=== PATIENT | male | born 1980 | race Caucasian/White ===

== ENCOUNTER 2018-07-03 06:02 | Day surgery (SDC) | payer OTHER ==
[2018-07-03] VITALS (17 sets, daily range): BP systolic 109–129; BP diastolic 58–88; PULSE 70–82; RESP 10–18; Ht 175.3 cm; Wt 109.4 kg
[~2018-07-03] VITALS: Ht 175.3 cm; Wt 109.4 kg
[~2018-07-03 06:02] MED LIST: CEFAZOLIN 2 GM/50 ML (PMX) 50 ML IVPB ONE; SOD CHLORIDE 0.9% 1,000 ML IV ONE
[2018-07-03] MEDS ORDERED: DEXAMETHASONE 4 MG/ML 5 ML INJ ONE (07:00)
[2018-07-03] MEDS ORDERED: DESFLURANE 15 MIN ONE (07:00)
[2018-07-03] MEDS ORDERED: FAMO20TA18 PO (07:07)
[2018-07-03] MEDS ORDERED: ASPI81TA52 PO (07:07)
[2018-07-03] MEDS ORDERED: CILO100T PO (07:07)
[2018-07-03] MEDS ORDERED: DOCU-144 PO (07:08)
[2018-07-03] MEDS ORDERED: FENO145T37 PO (07:08)
[2018-07-03] MEDS ORDERED: SERT-165 PO (07:09)
[2018-07-03] MEDS ORDERED: TRA100 PO (07:09)
[2018-07-03] MEDS ORDERED: LORA10TA3 PO (07:10)
[2018-07-03] MEDS ORDERED: ERGO2000 PO (07:10)
[2018-07-03] MEDS ORDERED: ARIP15TA3 PO (07:11)
[2018-07-03] MEDS ORDERED: VALS160T20 PO (07:12)
[2018-07-03] MEDS ORDERED: CHLO50TA PO (07:13)
[2018-07-03] MEDS ORDERED: TRIMETHOBENZAMIDE 100 MG/ML VIAL IM PRN (07:30)
[2018-07-03] MEDS ORDERED: IPRATROPIUM (NEB) 0.5 MG/2.5 ML AMP HHN PRN (07:30)
[2018-07-03] MEDS ORDERED: DIPHENHYDRAMINE 50 MG INJ IV PRN (07:30)
[2018-07-03] MEDS ORDERED: HYDROmorphONE 1 MG/5 ML IV SYRINGE IV PRN ×3 (07:30)
[2018-07-03] MEDS ORDERED: ONDANSETRON 4 MG INJ IV PRN (07:30)
[2018-07-03] MEDS ORDERED: hydrALAzine 20 MG INJ IV PRN (07:30)
[2018-07-03] MEDS ORDERED: OXYCODONE/ACETAMINOPHEN (5/325) TAB PO PRN ×2 (07:30)
[2018-07-03] MEDS ORDERED: ALBUTEROL 0.083% (NEB) 2.5 MG/3 ML AMP HHN PRN (07:30)
[2018-07-03] MEDS ORDERED: EPHEDrine SULFATE 50 MG/5 ML SYG IV PRN (07:30)
[2018-07-03] MEDS ORDERED: MEPERIDINE 25 MG INJ IV PRN (07:30)
[2018-07-03] MEDS ORDERED: LABETALOL HCL 20MG INJ IV PRN (07:30)
[2018-07-03] MEDS ORDERED: MIDAZOLAM 1 MG/ML 2 ML INJ IV PRN (07:30)
[2018-07-03] MEDS ORDERED: FENTAnyl 50 MCG/ML VIAL IV PRN ×3 (07:30)
--- NOTE | 2018-07-03 07:32 | PREAC ---
Date/Time of Note Date/Time of Note DATE: 07/03/18 TIME: 07:30 Anesthesia Eval and Record Evaluation Time Pre-Procedure Interview DATE: 07/03/18 TIME: 07:30 Age 37 Sex male NPO: 8 hrs Preoperative diagnosis SYMPTOMATIC CHOLELITHIASIS Planned procedure LAP PRAKASH Past Medical History Past Medical History: Includes Cardio: HTN, Dyslipidemia, Other (MITRAL REGURGITATION) GI: Obesity Psych: Other (SCHIZOPHRENIA) Surgery & Anesthesia Issues No known issue Meds Anticoagulation: No Beta Valerie within 24 hr: No Reason Beta Valerie not given: Pt. not on B-Valerie Reported Medications Chlorpromazine Hcl* (Chlorpromazine Hcl*) 50 Mg Tablet, 50 MG PO QHS, TAB 07/03/18 Valsartan* (Diovan*) 160 Mg Tablet, 160 MG PO DAILY, TAB 07/03/18 Aripiprazole* (Abilify*) 15 Mg Tablet, 15 MG PO BID, #30 TAB 07/03/18 Ergocalciferol (Vitamin D2) (VITAMIN D2) 2,000 Unit Tablet, 2000 UNIT PO DAILY, TAB 07/03/18 Loratadine* (Loratadine*) 10 Mg Tablet, 10 MG PO DAILY, #30 TAB 07/03/18 Sertraline Hcl* (Sertraline Hcl*) 100 Mg Tablet, 100 MG PO DAILY, #30 TAB 07/03/18 Trazodone Hcl* (Trazodone Hcl*) 100 Mg Tablet, 200 MG PO AT 4PM, #30 TAB 07/03/18 Docusate Sodium* (Colace*) 100 Mg Capsule, 100 MG PO BID, #60 CAP 07/03/18 Fenofibrate Nanocrystallized* (Fenofibrate*) 145 Mg Tablet, 145 MG PO DAILY, TAB 07/03/18 Famotidine* (Famotidine*) 20 Mg Tablet, 20 MG PO DAILY, #30 TAB 07/03/18 Cilostazol* (Cilostazol*) 100 Mg Tablet, 100 MG PO BID, TAB 07/03/18 Aspirin (Low Dose Aspirin) 81 Mg Tablet.dr, 81 MG PO DAILY, #30 TAB 07/03/18 Current Medications Sodium Chloride 1,000 ml @ 75 mls/hr [id number] ONCE IV ; Start 07/03/18 at 05:30; Stop 07/03/18 at 18:49 Meds reviewed: Yes Allergies Coded Allergies: No Known Allergy (Unverified , 07/03/18) Allergies Reviewed: Yes Labs/Studies Labs Reviewed: Reviewed by anesthesiologist Result Diagram: 07/03/18 0648 07/03/18 0648 Laboratory Tests 07/03/18 06:48 test: N/A Studies: ECG (INCOMPLETE RBBB) Pre-procedure Exam Last vitals Vital Signs Date Temp Pulse Resp B/P (MAP) Pulse Ox O2 O2 Flow FiO2 Time Delivery Rate 07/03/18 97.4 70 18 113/60 94 06:59 (77) Airway: Adequate mouth opening, Adequate thyromental dist Mallampati: Mallampati II Teeth: Abnormal (MISSING UPPER INCISORS) Lung: Normal Heart: Normal ASA Physical Status ASA physical status: 2 Emergency: None Planned Anesthetic General/MAC: ETT Nerve block: TAP (bilateral) Planned Pain Management Single shot nerve block, Parenteral pain med, Local by surgeon Pre-operative Attestations Prior to commencing anesthesia and surgery, the patient was re-evaluated, there was verification of: *The patient's identity *The results of appropriate recent lab work and preoperative vital signs *The above evaluation not changing prior to induction *Anesthetic plan, risk benefits, alternative and complications discussed with patient/family; questions answered; patient/family understands, accepts and wishes to proceed. Meliton Joy M.D. Jul 03, 2018 07:32
[2018-07-03] MEDS ORDERED: NEOSTIGMINE 3 MG/3 ML SYRINGE ONE (07:53)
[2018-07-03] MEDS ORDERED: FENTAnyl 50 MCG/ML VIAL ONE (07:53)
[2018-07-03] MEDS ORDERED: ROCURONIUM 50 MG INJ ONE (07:53)
[2018-07-03] MEDS ORDERED: MIDAZOLAM 1 MG/ML 2 ML INJ ONE (07:53)
[2018-07-03] MEDS ORDERED: PROPOFOL 20 ML ONE (07:53)
[2018-07-03] MEDS ORDERED: ONDANSETRON 4 MG INJ ONE (07:53)
[2018-07-03] MEDS ORDERED: CEFAZOLIN 1 GM INJ ONE (07:53)
[2018-07-03] MEDS ORDERED: ROPIVACAINE 0.5 % 30 ML VIAL ONE (07:59)
[2018-07-03] MEDS ORDERED: SUGAMMADEX SODIUM 200 MG/2 ML VIAL IV ONE (08:31)
--- NOTE | 2018-07-03 08:42 | OPR ---
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 He requires surgical excision of his gallbladder due to symptomatic pain. Risks alternatives benefits and percent were discussed the patient. Patient expressed understanding and consents to the operation. Procedure Description Patient is taken to the OR and prepped and draped in usual sterile fashion. Surgical time was performed. IV antibiotics were given. Infraumbilical transverse incision with a 15 blade. Dissection with cautery was carried onto the fascia. The fascia was grasped with [place]'s and divided with curved Gonsalves scissors. 0 Vicryl U stitch was placed into the fascia. Jimenez trocar was introduced. Pneumoperitoneum is established. Midepigastric 12 mm optical tro chars placed under direct position. Right upper quadrant upper flank 5 mm optical trochars were placed under direct physician. Upon initial inspection there are some adhesions to the gallbladder and the gallbladder was partially intrahepatic showing chronic inflammatory disease of the gallbladder. The fundus was grasped and retracted in a lateral and cephalad direction. [place] graspers were used to isolate and dissected out the cystic duct. The critical view was established. The cystic duct is divided with 3 clips proximally clipped distal and the division was performed laparoscopic scissors. Cystic artery was divided in similar fashion with 3 clips proximally clipped distal and the division was performed laparoscopic scissors. The gallbladder was taken of the gallbladder bed. Good hemostasis of the gallbladder bed is established. The gallbladder is retrieved using Endo Catch bag. Ports were removed under direct position. 0 Vicryl U stitch tied down. Skin is closed using skin fredy. A tap block has been provided by the anesthesiologist. Dry dressings were applied. Lilia YU Jul 03, 2018 08:42
[2018-07-03] MEDS ORDERED: HYDROCODONE/APAP (5/325) TAB PO ONE (09:00)
--- NOTE | 2018-07-03 09:00 | PAC ---
Date/Time of Note Date/Time of Note DATE: 07/03/18 TIME: 09:00 Post-Anesthesia Notes Post-Anesthesia Note Last documented vital signs Vital Signs Date Temp Pulse Resp B/P (MAP) Pulse Ox O2 O2 Flow FiO2 Time Delivery Rate 07/03/18 97.4 70 18 113/60 94 08:59 (77) Activity: WNL Respiratory function: WNL Cardiovascular function: WNL Mental status: Baseline Pain reasonably controlled: Yes Hydration appropriate: Yes Nausea/Vomiting absent: Yes Meliton Joy M.D. Jul 03, 2018 09:00
--- NOTE | 2018-07-04 19:44 | RADRPT ---
Vent Rate: 60 bpm RR Interval: 0 msec [place] Interval: 156 msec QRS Duration: 102 msec QT Interval: 414 msec QTC Interval: 414 msec P-R-T [place]: 52 - 68 - 63 degrees Normal sinus rhythm Incomplete right bundle branch block Borderline ECG Electronically Signed By: Foreign Johnson [id number]
== END 2018-07-03 10:35 | disposition home or self-care (01) ==
LOC: SDS 06:02
PROVIDERS: ATTEND Surgery
DX: K82.4 Cholesterolosis of gallbladder (principal)
CPT/HCPCS: 47562; 71045; 80053; 85025; 85610; 85730; 88304; 93005; J0690; J1170; J2250; J2405; J2710; J2795; J3010; Z7512; Z7610; J1100